=== PATIENT | male | born 1990 | race African-American/Black ===

== ENCOUNTER 2017-05-14 04:31 | Emergency (ER) | payer MEDICAID ==
[~2017-05-14] VITALS: Ht 180.3 cm; Wt 113.4 kg
[2017-05-14 05:22] LABS: URINE SOURCE CLEAN CATCH
[2017-05-14 05:48] LABS: URINE APPEARANCE CLEAR; URINE BILIRUBIN NEG (NEG); URINE BLOOD NEG (NEG); URINE COLOR YELLOW; URINE GLUCOSE >1000 MG/DL (NEG); URINE KETONE NEG (NEG); URINE LEUKOCYTE ESTERASE NEG (NEG); URINE NITRATE NEG (NEG); URINE PROTEIN NEG (NEG); URINE SPECIFIC GRAVITY 1.033 (1.003-1.035); URINE UROBILINOGEN 0.2 MG/DL (NEG)
[2017-05-14 05:52] LABS: CULTURE INDICATED? NO
[2017-05-14 07:22] LABS: BUN/CREATININE RATIO 18.57; CALCIUM SERUM 9.3 mg/dL (8.4-10.2); CREATININE SERUM 0.7 mg/dL (0.6-1.4); GLOM FILT RATE Estimated 148.9 mL/min (>60); POTASSIUM 3.9 mmol/L (3.5-5.1)
[2017-05-17 09:52] LABS: CHLAMYDIA TRACH Not Detected (Not Detected); N GONOR Not Detected (Not Detected)
== END 2017-05-14 08:45 | disposition home or self-care (01) ==
LOC: CED 04:31
PROVIDERS: Nurse Practitioner
DX: R36.9 Urethral discharge, unspecified (principal); R73.9 Hyperglycemia, unspecified; F17.210 Nicotine dependence, cigarettes, uncomplicated
CPT/HCPCS: 36415; 80048; 81003; 82947; 87491; 87591; 99283